=== PATIENT | female | born 1940 | race African-American/Black ===

== ENCOUNTER 2021-12-19 02:34 | Emergency (ER) | payer MEDICARE ==
[~2021-12-19] VITALS: Ht 157.5 cm; Wt 61.9 kg
[2021-12-19] MEDS ORDERED: PROPOFOL 1000 MG/ISO-OSM 100 ML ONE (02:55)
[2021-12-19 03:00] VITALS: BP 125/82
[2021-12-19] MEDS ORDERED: NOREPINEPHRINE 8 MG/D5%-WATER 250 ML IV ONE (03:15)
[2021-12-19] MEDS ORDERED: PROPOFOL 1000 MG/ISO-OSM 100 ML IV PRN (03:15)
[2021-12-19] MEDS: NOREPINEPHRINE 8 MG/D5%-WATER 250 ML IV PRN ×2 (03:17→04:28)
[2021-12-19 03:21] LABS: EOSINOPHILS % (AUTO) 2.7 % (1.0-6.0); HEMATOCRIT 31.8 % (36-46); HEMOGLOBIN 9.3 g/dL (12.0-16.0); LYMPHOCYTES # (AUTO) 3.9 K/uL (1.0-4.8); LYMPHOCYTES % (AUTO) 33.6 % (22.0-44.0); MEAN CORPUSCULAR HGB CONC 29.1 G/dL (31.0-37.0); MEAN CORPUSCULAR VOLUME 89 fL (80-100); MONOCYTES # (AUTO) 1.2 K/uL (0.1-1.0); MONOCYTES % (AUTO) 10.7 % (2.0-9.0); PLATELET COUNT (AUTO) 191 K/uL (150-450); RED BLOOD CELL COUNT(AUTO) 3.56 MIL/uL (4.00-5.20); RED CELL DISTRIBUTION WIDTH 19.5 % (11.5-14.5)
[2021-12-19] MEDS ORDERED: EPINEPHrine 1:10,000 [1 MG/10 ML] SYRINGE ONE ×2 (03:25→11:59)
[2021-12-19 03:36] LABS: CALCIUM, TOTAL 8.8 mg/dL (8.8-10.5); CREATININE 1.34 mg/dL (0.60-1.30); POTASSIUM 4.8 mmol/L (3.5-5.1)
[2021-12-19 03:50] LABS: ALBUMIN 2.4 g/dL (3.4-5.0); BILIRUBIN,TOTAL 0.3 mg/dL (0.1-1.0); TOTAL PROTEIN, SERUM 5.6 g/dL (6.4-8.2)
[2021-12-19 04:15] LABS: INR 1.4 (0.9-1.1); PROTHROMBIN TIME 14.6 SEC (9.4-11.6)
[2021-12-19] MEDS ORDERED: SODIUM BICARBONATE [ADULT] 8.4% 50 MEQ/50 ML SYRINGE IVP ONE (11:59)
[2021-12-19] MEDS ORDERED: 0.9% SODIUM CHLORIDE 10 ML SYRINGE IVP ONE (11:59)
== END 2021-12-19 06:40 ==
LOC: EMS 02:37
DX: I46.9 Cardiac arrest, cause unspecified (principal)
CPT/HCPCS: 99291; 31500; 96365; 71045; 96366; 80053; 82550; 82962; 83605; 83880; 84484; 85025; 85610; 85730; 87040; 93005; 36415; 92950; J0171; J3490; J2704; Q9967; 94002